=== PATIENT | female | born 1990 | race Caucasian/White ===

== ENCOUNTER 2017-08-14 00:02 | Emergency (ER) | payer OTHER, MEDICAID ==
[~2017-08-14] VITALS: Ht 160 cm; Wt 45.4 kg
[2017-08-14] MEDS ORDERED: HYDROXYZINE HCL25 M1 (00:14)
[2017-08-14] MEDS ORDERED: PAXIL10 MG (00:14)
[2017-08-14 01:07] VITALS: BP 104/59
== END 2017-08-14 01:10 | disposition home or self-care (01) ==
LOC: M.ERS 00:02
DX: J06.9 Acute upper respiratory infection, unspecified (principal); F41.9 Anxiety disorder, unspecified; F32.9 Major depressive disorder, single episode, unspecified

== ENCOUNTER 2017-08-15 22:18 | Emergency (ER) | payer MEDICAID ==
[~2017-08-15] VITALS: Ht 160 cm; Wt 45.4 kg
[~2017-08-15 22:18] MED LIST: HYDROXYZINE HCL25 M1; PAXIL10 MG
[2017-08-15 22:36] LABS: ABSOLUTE LYMPHOCYTES 1.6 thou/uL (0.8-5.3); ABSOLUTE MONOCYTES 0.4 thou/uL (0.0-1.2); BASOPHILS 0.3 %; EOSINOPHILS 0.5 %; HEMOGLOBIN 8.2 gm/dL (12.0-15.0); LYMPHOCYTES 26.7 %; MCH 20.1 pg (26.0-34.0); MCHC 30.4 g/dL (28.0-37.0); MCV 66.3 fL (80.0-100.0); MONOCYTES 5.9 %; MPV 7.5 fl. (7.2-11.1); NUCLEATED RBCS 0 /100WBC; PLATELET COUNT* 178 thou/uL (150-400); POLYS 66.6 %; RBC 4.07 mil/uL (4.20-5.00); RDW-CV 18.3 % (10.5-14.5)
[2017-08-15 22:42] LABS: CALCIUM 8.7 mg/dL (8.5-10.1); CREATININE 0.6 mg/dL (0.6-1.3); POTASSIUM 3.2 mmol/L (3.5-5.1)
[2017-08-15 22:46] LABS: ALBUMIN 3.5 g/dL (3.4-5.0); TOTAL BILIRUBIN 0.3 mg/dL (<0.1-1.0); TOTAL PROTEIN 7.3 g/dL (6.4-8.2)
[2017-08-15 22:57] LABS: PLATELET ESTIMATE ADEQUATE
[2017-08-15 22:58] LABS: ANISOCYTOSIS 1+; OVALOCYTES Occasional
[2017-08-15 22:59] LABS: HYPOCHROMASIA 2+
[2017-08-15 23:00] LABS: MICROCYTES 2+
[2017-08-15 23:01] VITALS: BP 111/77
--- NOTE | 2017-08-16 09:34 | EKG ---
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
== END 2017-08-15 23:01 | disposition home or self-care (01) ==
LOC: M.ERS 22:18
PROVIDERS: Family Medicine
DX: R51 Headache (principal); F41.9 Anxiety disorder, unspecified; F32.9 Major depressive disorder, single episode, unspecified

== ENCOUNTER 2017-08-19 21:09 | Emergency (ER) | payer MEDICAID ==
[~2017-08-19] VITALS: Ht 160 cm; Wt 45.4 kg
[2017-08-19 21:53] LABS: ABSOLUTE LYMPHOCYTES 1.9 thou/uL (0.8-5.3); ABSOLUTE MONOCYTES 0.2 thou/uL (0.0-1.2); BASOPHILS 0.6 %; EOSINOPHILS 0.5 %; HEMATOCRIT 27.8 % (37.0-47.0); HEMOGLOBIN 8.4 gm/dL (12.0-15.0); MCH 20.1 pg (26.0-34.0); MCHC 30.4 g/dL (28.0-37.0); MCV 66.3 fL (80.0-100.0); MONOCYTES 3.4 %; MPV 7.7 fl. (7.2-11.1); NUCLEATED RBCS 0 /100WBC; PLATELET COUNT* 191 thou/uL (150-400); POLYS 58.5 %; WBC 5.1 thou/uL (4.0-11.0)
[2017-08-19 22:09] LABS: ANION GAP 8 mmol/L (7-16); BUN 6 mg/dL (7-18); CALCIUM 8.9 mg/dL (8.5-10.1); CHLORIDE 105 mmol/L (98-107); CO2 28 mmol/L (21-32); CREATININE 0.7 mg/dL (0.6-1.3); GLUCOSE 83 mg/dL (70-99); POTASSIUM 3.4 mmol/L (3.5-5.1); SODIUM 141 mmol/L (136-145)
[2017-08-19 22:11] LABS: URINE BILIRUBIN NEGATIVE (Negative); URINE BLOOD NEGATIVE (Negative); URINE CLARITY CLEAR; URINE COLOR YELLOW; URINE GLUCOSE-RANDOM NEGATIVE (Negative); URINE KETONES NEGATIVE (Negative); URINE LEUKOCYTES-REFLEX NEGATIVE (Negative); URINE NITRITE-REFLEX NEGATIVE (Negative); URINE PROTEIN NEGATIVE (Negative); URINE SPECIFIC GRAVITY 1.025 (1.005-1.030); URINE UROBILINOGEN 0.2 E.U./dl (0.2-1.0)
[2017-08-19 22:15] LABS: ALBUMIN 3.8 g/dL (3.4-5.0); ALKALINE PHOSPHATASE 56 U/L (46-116); LIPASE 130 U/L (73-393); SGOT 36 U/L (15-37); SGPT 80 U/L (30-65); TOTAL BILIRUBIN 0.3 mg/dL (<0.1-1.0); TOTAL PROTEIN 7.9 g/dL (6.4-8.2); TROPONIN-I LEVEL <0.06 ng/mL (<0.06)
[2017-08-19 22:21] LABS: OVALOCYTES Occasional; PLATELET ESTIMATE ADEQUATE
[2017-08-19 22:22] LABS: ANISOCYTOSIS 1+; HYPOCHROMASIA 2+; MICROCYTES 2+
[2017-08-19 23:25] VITALS: BP 102/66
--- NOTE | 2017-08-20 14:23 | EKG ---
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: PAULINE : 1990 Requested By: Soy Petit Order Number: [id number] MD: Franco Sahu Measurements Intervals [place] Rate: 57 P: 53 [place]: 141 QRS: 31 QRSD: 105 T: 28 QT: 473 QTc: 461 Interpretive Statements Sinus rhythm Probable left atrial enlargement RSR' in V1 or V2, right VCD Nonspecific T abnormalities, anterior leads Compared to ECG 08/15/2017 22:34:58 RSR' in V1 or V2 now present T-wave abnormality now present Electronically Signed On 08-20-2017 14:23:36 CDT by Franco Sahu [email or web address] <ELECTRONICALLY SIGNED> By: Franco Sahu MD, [facility] 08/20/17 1423 01 01 Franco Sahu MD, [facility] /EPI
== END 2017-08-19 23:15 | disposition home or self-care (01) ==
LOC: M.ERS 21:09
PROVIDERS: Emergency Medicine Emergency Medical Services
DX: R51 Headache (principal); F41.9 Anxiety disorder, unspecified; F32.9 Major depressive disorder, single episode, unspecified

== ENCOUNTER 2017-09-20 14:41 | Emergency (ER) | payer MEDICAID ==
[~2017-09-20] VITALS: Ht 157.5 cm; Wt 45.4 kg
[2017-09-20] MEDS ORDERED: MEDROLDOSEPACK PO (15:17)
[2017-09-20] MEDS ORDERED: NAPROSYN500 MG PO (15:17)
[2017-09-20 15:49] VITALS: BP 126/62
== END 2017-09-20 15:49 | disposition home or self-care (01) ==
LOC: M.ERS 14:41
DX: M54.42 Lumbago with sciatica, left side (principal); F41.9 Anxiety disorder, unspecified; F32.9 Major depressive disorder, single episode, unspecified; Z98.890 Other specified postprocedural states

== ENCOUNTER 2017-09-29 03:25 | Emergency (ER) | payer MEDICAID ==
[~2017-09-29] VITALS: Ht 160 cm; Wt 45.4 kg
[~2017-09-29 03:25] MED LIST changes: +MEDROLDOSEPACK PO; +NAPROSYN500 MG PO
[2017-09-29 03:29] VITALS: BP 114/73
== END 2017-09-29 04:05 | disposition home or self-care (01) ==
LOC: M.ERS 03:25
DX: L53.9 Erythematous condition, unspecified (principal); T63.441A Toxic effect of venom of bees, accidental (unintentional), initial encounter; F32.9 Major depressive disorder, single episode, unspecified; F41.9 Anxiety disorder, unspecified; Z98.890 Other specified postprocedural states; Y92.89 Other specified places as the place of occurrence of the external cause

== ENCOUNTER 2017-10-09 17:38 | Emergency (ER) | payer MEDICAID ==
[~2017-10-09] VITALS: Ht 160 cm; Wt 45.4 kg
[2017-10-09] MEDS ORDERED: IBUPROFEN 600600 M1 PO (18:49)
[2017-10-09 18:56] VITALS: BP 111/72
== END 2017-10-09 18:57 | disposition home or self-care (01) ==
LOC: M.ERS 17:38
DX: M54.2 Cervicalgia (principal); M25.532 Pain in left wrist; M25.562 Pain in left knee; F31.9 Bipolar disorder, unspecified; V19.9XXA Pedal cyclist (driver) (passenger) injured in unspecified traffic accident, initial encounter; Y93.89 Activity, other specified; Y92.89 Other specified places as the place of occurrence of the external cause; Y99.8 Other external cause status

== ENCOUNTER 2017-10-11 22:54 | Emergency (ER) | payer MEDICAID ==
[~2017-10-11] VITALS: Ht 160 cm; Wt 45.4 kg
[~2017-10-11 22:54] MED LIST changes: +IBUPROFEN 600600 M1 PO
[2017-10-11 23:33] LABS: ABSOLUTE LYMPHOCYTES 1.7 thou/uL (0.8-5.3); ABSOLUTE MONOCYTES 0.2 thou/uL (0.0-1.2); ABSOLUTE NEUTROPHILS 2.7 thou/uL (1.6-8.1); BASOPHILS 0.5 %; EOSINOPHILS 0.9 %; HEMATOCRIT 28.6 % (37.0-47.0); HEMOGLOBIN 8.7 gm/dL (12.0-15.0); LYMPHOCYTES 35.6 %; MCHC 30.4 g/dL (28.0-37.0); MCV 65.7 fL (80.0-100.0); MONOCYTES 4.8 %; MPV 8.4 fl. (7.2-11.1); NUCLEATED RBCS 0 /100WBC; PLATELET COUNT* 203 thou/uL (150-400); POLYS 58.2 %; RBC 4.35 mil/uL (4.20-5.00); RDW-CV 18.5 % (10.5-14.5); WBC 4.7 thou/uL (4.0-11.0)
[2017-10-11 23:40] LABS: CALCIUM 8.9 mg/dL (8.5-10.1); CREATININE 0.6 mg/dL (0.6-1.3); POTASSIUM 3.6 mmol/L (3.5-5.1)
[2017-10-11 23:44] LABS: ALBUMIN 3.5 g/dL (3.4-5.0); TOTAL BILIRUBIN 0.3 mg/dL (<0.1-1.0); TOTAL PROTEIN 7.4 g/dL (6.4-8.2)
[2017-10-12 00:18] LABS: URINE BILIRUBIN NEGATIVE (Negative); URINE BLOOD 3+ (Negative); URINE CLARITY CLEAR; URINE COLOR DARK YELLOW; URINE GLUCOSE-RANDOM NEGATIVE (Negative); URINE KETONES NEGATIVE (Negative); URINE LEUKOCYTES NEGATIVE (Negative); URINE NITRITE NEGATIVE (Negative); URINE PROTEIN TRACE (Negative); URINE SPECIFIC GRAVITY 1.015 (1.005-1.030); URINE UROBILINOGEN 0.2 E.U./dl (0.2-1.0)
[2017-10-12 00:24] LABS: BACTERIA 1-9 Few /HPF (None Seen); CASTS None Seen /LPF (None Seen); CRYSTALS None Seen /LPF (None Seen); MUCUS 0-3 Light strn/LPF (None Seen); SQUAMOUS 0-3 Few /LPF (0-3); URINE RBC >20 Many /HPF (0-2); URINE WBC None Seen /HPF (0-5)
[2017-10-12] MEDS ORDERED: ZOFRAN ODT4 MG PO (00:27)
[2017-10-12] MEDS ORDERED: IRON325 PO (00:27)
[2017-10-12 00:36] VITALS: BP 101/75
[2017-10-12 05:36] LABS: HYPOCHROMASIA 2+; MICROCYTES 2+; PLATELET ESTIMATE ADEQUATE; POIKILOCYTOSIS 1+
[2017-10-12 05:37] LABS: ANISOCYTOSIS 2+
== END 2017-10-12 00:38 | disposition home or self-care (01) ==
LOC: M.ERS 22:54
PROVIDERS: Nurse Practitioner Family
DX: F07.81 Postconcussional syndrome (principal); D64.9 Anemia, unspecified; F31.9 Bipolar disorder, unspecified; F41.9 Anxiety disorder, unspecified

== ENCOUNTER 2017-12-05 23:17 | Emergency (ER) | payer MEDICAID ==
[~2017-12-05] VITALS: Ht 160 cm; Wt 45.4 kg
[~2017-12-05 23:17] MED LIST changes: +IRON325 PO; +ZOFRAN ODT4 MG PO
[2017-12-06 00:30] VITALS: BP 96/64
== END 2017-12-06 00:32 | disposition home or self-care (01) ==
LOC: M.ERS 23:17
DX: R10.2 Pelvic and perineal pain (principal); F31.9 Bipolar disorder, unspecified

== ENCOUNTER 2017-12-31 20:37 | Emergency (ER) | payer MEDICAID ==
[~2017-12-31] VITALS: Ht 160 cm; Wt 45.4 kg
[2017-12-31] MEDS ORDERED: ROBAXIN 750 MG750 M1 PO (23:08)
[2017-12-31] MEDS ORDERED: ACETAMINOPHEN-1 EAC1 PO (23:08)
[2017-12-31] MEDS ORDERED: IBU600 MG PO (23:08)
[2017-12-31 23:22] VITALS: BP 106/74
== END 2017-12-31 23:22 | disposition home or self-care (01) ==
LOC: M.ERS 20:37
DX: M54.2 Cervicalgia (principal); R51 Headache; F31.9 Bipolar disorder, unspecified; F41.9 Anxiety disorder, unspecified

== ENCOUNTER 2018-03-13 05:17 | Emergency (ER) | payer MEDICAID ==
[~2018-03-13] VITALS: Ht 160 cm; Wt 45.4 kg
[~2018-03-13 05:17] MED LIST changes: +ACETAMINOPHEN-1 EAC1 PO; +IBU600 MG PO; +ROBAXIN 750 MG750 M1 PO
[2018-03-13 05:57] LABS: ABSOLUTE EOSINOPHILS 0.1 thou/uL (0.0-0.7); ABSOLUTE LYMPHOCYTES 2.2 thou/uL (0.8-5.3); ABSOLUTE MONOCYTES 0.3 thou/uL (0.0-1.2); BASOPHILS 0.8 %; EOSINOPHILS 1.4 %; HEMATOCRIT 30.7 % (37.0-47.0); HEMOGLOBIN 9.3 gm/dL (12.0-15.0); LYMPHOCYTES 49.3 %; MCH 20.2 pg (26.0-34.0); MCHC 30.3 g/dL (28.0-37.0); MCV 66.5 fL (80.0-100.0); MONOCYTES 5.5 %; MPV 8.8 fl. (7.2-11.1); NUCLEATED RBCS 0 /100WBC; PLATELET COUNT* 167 thou/uL (150-400); RBC 4.61 mil/uL (4.20-5.00); RDW-CV 19.1 % (10.5-14.5); WBC 4.6 thou/uL (4.0-11.0)
[2018-03-13 06:05] LABS: CALCIUM 9.6 mg/dL (8.5-10.1); CREATININE 0.8 mg/dL (0.6-1.3); POTASSIUM 3.7 mmol/L (3.5-5.1)
[2018-03-13 06:10] LABS: ALBUMIN 3.7 g/dL (3.4-5.0); TOTAL BILIRUBIN 0.3 mg/dL (<0.1-1.0); TOTAL PROTEIN 7.6 g/dL (6.4-8.2)
[2018-03-13] MEDS ORDERED: FLEXERIL PO (06:11)
[2018-03-13] MEDS ORDERED: TORADOL 10 MG T10 MG PO (06:11)
[2018-03-13 06:19] VITALS: BP 102/69
[2018-03-13 06:28] LABS: HYPOCHROMASIA 2+
[2018-03-13 06:29] LABS: ANISOCYTOSIS 1+; MICROCYTES 1+
== END 2018-03-13 06:19 | disposition home or self-care (01) ==
LOC: M.ERS 05:17
PROVIDERS: Emergency Medicine
DX: R51 Headache (principal); F31.9 Bipolar disorder, unspecified; F41.9 Anxiety disorder, unspecified; Z98.890 Other specified postprocedural states

== ENCOUNTER 2018-04-12 20:50 | Emergency (ER) | payer MEDICAID ==
[~2018-04-12] VITALS: Ht 160 cm; Wt 52.2 kg
[~2018-04-12 20:50] MED LIST changes: +FLEXERIL PO; +TORADOL 10 MG T10 MG PO
[2018-04-12 21:30] LABS: ABSOLUTE LYMPHOCYTES 1.3 thou/uL (0.8-5.3); ABSOLUTE MONOCYTES 0.2 thou/uL (0.0-1.2); ABSOLUTE NEUTROPHILS 2.3 thou/uL (1.6-8.1); BASOPHILS 0.7 %; EOSINOPHILS 1.1 %; HEMATOCRIT 30.2 % (37.0-47.0); HEMOGLOBIN 9.2 gm/dL (12.0-15.0); LYMPHOCYTES 33.5 %; MCH 20.2 pg (26.0-34.0); MCHC 30.6 g/dL (28.0-37.0); MCV 66.1 fL (80.0-100.0); MONOCYTES 5.5 %; MPV 8.5 fl. (7.2-11.1); NUCLEATED RBCS 0 /100WBC; PLATELET COUNT* 162 thou/uL (150-400); POLYS 59.2 %; RBC 4.56 mil/uL (4.20-5.00); RDW-CV 18.2 % (10.5-14.5); WBC 3.8 thou/uL (4.0-11.0)
[2018-04-12 21:40] LABS: ANION GAP 8 mmol/L (7-16); BUN 14 mg/dL (7-18); CALCIUM 9.5 mg/dL (8.5-10.1); CHLORIDE 102 mmol/L (98-107); CO2 27 mmol/L (21-32); CREATININE 0.8 mg/dL (0.6-1.3); GLUCOSE 80 mg/dL (70-99); POTASSIUM 3.3 mmol/L (3.5-5.1); SODIUM 137 mmol/L (136-145)
[2018-04-12 21:45] LABS: ALBUMIN 3.5 g/dL (3.4-5.0); ALKALINE PHOSPHATASE 51 U/L (46-116); LIPASE 106 U/L (73-393); SGOT 16 U/L (15-37); SGPT 17 U/L (30-65); TOTAL BILIRUBIN 0.3 mg/dL (<0.1-1.0); TOTAL PROTEIN 7.3 g/dL (6.4-8.2); TROPONIN-I LEVEL <0.06 ng/mL (<0.06)
[2018-04-12] MEDS ORDERED: ZANAFLEX4 MG PO (22:28)
[2018-04-12] MEDS ORDERED: ONDANSETRON HCL4 M2 PO (22:28)
[2018-04-12 22:48] LABS: ANISOCYTOSIS 2+
[2018-04-12 22:49] LABS: HYPOCHROMASIA 2+; MICROCYTES 2+; OVALOCYTES 1+; POIKILOCYTOSIS 2+; SCHISTOCYTES Occasional; TARGET CELLS Occasional; TEARDROPS Occasional
[2018-04-12 23:07] LABS: URINE BILIRUBIN NEGATIVE (Negative); URINE BLOOD TRACE (Negative); URINE CLARITY CLEAR; URINE COLOR YELLOW; URINE GLUCOSE-RANDOM NEGATIVE (Negative); URINE KETONES NEGATIVE (Negative); URINE LEUKOCYTES-REFLEX NEGATIVE (Negative); URINE NITRITE-REFLEX NEGATIVE (Negative); URINE PROTEIN NEGATIVE (Negative); URINE SPECIFIC GRAVITY >= 1.030 (1.005-1.030)
[2018-04-12 23:14] LABS: AMP/METHAMP Negative (Negative); BARBITURATES Negative (Negative); BENZODIAZEPINES Negative (Negative); COCAINE Negative (Negative); METHADONE Negative (Negative); OPIATES Negative (Negative); PCP Negative (Negative); THC Negative (Negative)
[2018-04-12 23:28] LABS: INFLUENZA A ANTIGEN None Detected (None Detect); INFLUENZA B ANTIGEN None Detected (None Detect)
[2018-04-12 23:47] VITALS: BP 102/78
--- NOTE | 2018-04-14 11:12 | EKG ---
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 : 1990 Requested By: Sweta Salazar Order Number: [id number] MD: Franco Sahu Measurements Intervals [place] Rate: 74 P: 70 [place]: 199 QRS: 27 QRSD: 98 T: 36 QT: 410 QTc: 455 Interpretive Statements Sinus rhythm Borderline ST elevation, anterolateral leads; consider ischemia Compared to ECG 08/19/2017 22:02:31 ST (T wave) deviation now present Electronically Signed On 04-14-2018 11:11:47 PROFESSOR OF JOURNALISM by Franco Sahu [email or web address] <ELECTRONICALLY SIGNED> By: Franco Sahu MD, [facility] 04/14/18 1111 24 24 Franco Sahu MD, [facility] /EPI
== END 2018-04-12 23:48 | disposition home or self-care (01) ==
LOC: M.ERS 20:50
PROVIDERS: Nurse Practitioner Family
DX: M41.84 Other forms of scoliosis, thoracic region (principal); D64.9 Anemia, unspecified; B34.9 Viral infection, unspecified; F31.9 Bipolar disorder, unspecified; F41.9 Anxiety disorder, unspecified; Z98.890 Other specified postprocedural states

== ENCOUNTER 2018-04-16 18:59 | Emergency (ER) | payer MEDICAID ==
[~2018-04-16] VITALS: Ht 160 cm; Wt 51.3 kg
[~2018-04-16 18:59] MED LIST changes: +ONDANSETRON HCL4 M2 PO; +ZANAFLEX4 MG PO
[2018-04-16 19:45] VITALS: BP 118/84
== END 2018-04-16 19:48 | disposition home or self-care (01) ==
LOC: M.ERS 18:59
DX: Z71.1 Person with feared health complaint in whom no diagnosis is made (principal); F41.9 Anxiety disorder, unspecified; F31.9 Bipolar disorder, unspecified; M41.9 Scoliosis, unspecified; Z98.890 Other specified postprocedural states

== ENCOUNTER 2018-05-20 10:09 | Emergency (ER) | payer MEDICAID ==
[~2018-05-20] VITALS: Ht 160 cm; Wt 51.3 kg
[2018-05-20 10:46] LABS: HEMATOCRIT 43.5 % (37.0-47.0); HEMOGLOBIN 13.7 gm/dL (12.0-15.0); MCH 23.9 pg (26.0-34.0); MCHC 31.5 g/dL (28.0-37.0); MCV 75.9 fL (80.0-100.0); MPV 8.9 fl. (7.2-11.1); NUCLEATED RBCS 0 /100WBC; PLATELET COUNT* 198 thou/uL (150-400); RBC 5.73 mil/uL (4.20-5.00); RDW-CV 26.9 % (10.5-14.5); WBC 6.6 thou/uL (4.0-11.0)
[2018-05-20 11:01] LABS: ANION GAP 8 mmol/L (7-16); BUN 10 mg/dL (7-18); CALCIUM 9.8 mg/dL (8.5-10.1); CHLORIDE 102 mmol/L (98-107); CO2 26 mmol/L (21-32); CREATININE 0.8 mg/dL (0.6-1.3); GLUCOSE 79 mg/dL (70-99); POTASSIUM 3.6 mmol/L (3.5-5.1); SODIUM 136 mmol/L (136-145)
[2018-05-20 11:05] LABS: ABSOLUTE LYMPHOCYTES 0.2 thou/uL (0.8-5.3); ABSOLUTE NEUTROPHILS 6.4 thou/uL (1.6-8.1); ALBUMIN 4.4 g/dL (3.4-5.0); ALKALINE PHOSPHATASE 63 U/L (46-116); ANISOCYTOSIS 2+; HYPOCHROMASIA 1+; LIPASE 141 U/L (73-393); PLATELET ESTIMATE ADEQUATE; SGOT 14 U/L (15-37); SGPT 19 U/L (30-65); TOTAL BILIRUBIN 0.4 mg/dL (<0.1-1.0); TROPONIN-I LEVEL <0.06 ng/mL (<0.06)
[2018-05-20 11:15] VITALS: BP 97/69
--- NOTE | 2018-05-20 16:15 | EKG ---
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1990 Requested By: Lauri Ramon Order Number: [id number] MD: Mukul Jonas Measurements Intervals [place] Rate: 83 P: 66 [place]: 165 QRS: 13 QRSD: 92 T: 15 QT: 349 QTc: 410 Interpretive Statements Sinus rhythm Compared to ECG 04/12/2018 21:25:27 ST (T wave) deviation no longer present Possible ischemia no longer present Electronically Signed On 05-20-2018 16:15:38 CANT HOOKER by Mukul Jonas [email or web address] <ELECTRONICALLY SIGNED> By: Mukul Jonas MD, [facility] 05/20/18 1615 1012 1012 Mukul Jonas MD, [facility] /EPI
== END 2018-05-20 11:19 | disposition home or self-care (01) ==
LOC: M.ERS 10:09
PROVIDERS: Family Medicine
DX: J06.9 Acute upper respiratory infection, unspecified (principal); R07.89 Other chest pain; F41.9 Anxiety disorder, unspecified; Z86.2 Personal history of diseases of the blood and blood-forming organs and certain disorders involving the immune mechanism

== ENCOUNTER 2018-09-18 20:51 | Emergency (ER) | payer MEDICAID ==
[~2018-09-18] VITALS: Ht 160 cm; Wt 51.9 kg
[2018-09-18 21:21] LABS: ABSOLUTE EOSINOPHILS 0.1 thou/uL (0.0-0.7); ABSOLUTE LYMPHOCYTES 2.4 thou/uL (0.8-5.3); ABSOLUTE MONOCYTES 0.2 thou/uL (0.0-1.2); ABSOLUTE NEUTROPHILS 1.8 thou/uL (1.6-8.1); BASOPHILS 0.8 %; EOSINOPHILS 2.4 %; HEMATOCRIT 35.2 % (37.0-47.0); HEMOGLOBIN 11.5 gm/dL (12.0-15.0); MCH 27.2 pg (26.0-34.0); MCHC 32.8 g/dL (28.0-37.0); MCV 82.8 fL (80.0-100.0); MPV 8.4 fl. (7.2-11.1); NUCLEATED RBCS 0 /100WBC; PLATELET COUNT* 126 thou/uL (150-400); POLYS 39.8 %; RBC 4.25 mil/uL (4.20-5.00); RDW-CV 13.5 % (10.5-14.5); WBC 4.6 thou/uL (4.0-11.0)
[2018-09-18 21:32] LABS: CALCIUM 8.6 mg/dL (8.5-10.1); POTASSIUM 3.4 mmol/L (3.5-5.1)
[2018-09-18 21:45] LABS: ALBUMIN 3.5 g/dL (3.4-5.0); TOTAL BILIRUBIN 0.3 mg/dL (<0.1-1.0)
[2018-09-18] MEDS ORDERED: CYCLOBENZAPRINE5 MG PO (22:01)
[2018-09-18 22:10] VITALS: BP 105/65
--- NOTE | 2018-09-19 11:35 | EKG ---
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: HYUN : 1990 Requested By: Raquel Parikh Order Number: [id number] MD: Sd Tapia Measurements Intervals [place] Rate: 60 P: 39 [place]: 194 QRS: 34 QRSD: 110 T: 31 QT: 451 QTc: 451 Interpretive Statements Sinus rhythm RSR' in V1 or V2, right VCD or RVH Compared to ECG 05/20/2018 10:12:34 Right ventricular hypertrophy now present RSR' in V1 or V2 now present Electronically Signed On 09-19-2018 11:35:33 CDT by Sd Tapia [email or web address] <ELECTRONICALLY SIGNED> By: Sd Tapia MD, [facility] 09/19/18 1135 17 17 dS Tapia MD, [facility] /EPI
== END 2018-09-18 22:10 | disposition home or self-care (01) ==
LOC: M.ERS 20:51
PROVIDERS: Nurse Practitioner Family
DX: R51 Headache (principal); M26.622 Arthralgia of left temporomandibular joint

== ENCOUNTER 2019-05-19 16:10 | Emergency (ER) | payer MEDICAID ==
[~2019-05-19] VITALS: Ht 160 cm; Wt 49.4 kg
[~2019-05-19 16:10] MED LIST changes: +CYCLOBENZAPRINE5 MG PO
[2019-05-19 17:32] LABS: INFLUENZA A ANTIGEN Negative (Negative); INFLUENZA B ANTIGEN Negative (Negative)
[2019-05-19 17:41] LABS: ABSOLUTE EOSINOPHILS 0.1 thou/uL (0.0-0.7); ABSOLUTE MONOCYTES 0.1 thou/uL (0.0-1.2); ABSOLUTE NEUTROPHILS 1.3 thou/uL (1.6-8.1); BASOPHILS 0.7 %; EOSINOPHILS 3.2 %; HEMATOCRIT 38.5 % (37.0-47.0); HEMOGLOBIN 12.8 gm/dL (12.0-15.0); LYMPHOCYTES 38.4 %; MCHC 33.3 g/dL (28.0-37.0); MCV 84.1 fL (80.0-100.0); MONOCYTES 5.9 %; NUCLEATED RBCS 0 /100WBC; PLATELET COUNT* 128 thou/uL (150-400); POLYS 51.8 %; RBC 4.58 mil/uL (4.20-5.00); RDW-CV 13.2 % (10.5-14.5); WBC 2.5 thou/uL (4.0-11.0)
[2019-05-19 17:45] LABS: URINE BILIRUBIN NEGATIVE (Negative); URINE BLOOD NEGATIVE (Negative); URINE CLARITY CLEAR; URINE COLOR YELLOW; URINE GLUCOSE-RANDOM NEGATIVE (Negative); URINE KETONES NEGATIVE (Negative); URINE LEUKOCYTES-REFLEX NEGATIVE (Negative); URINE NITRITE-REFLEX NEGATIVE (Negative); URINE PROTEIN NEGATIVE (Negative); URINE SPECIFIC GRAVITY 1.025 (1.005-1.030); URINE UROBILINOGEN >= 8.0 E.U./dl (0.2-1.0)
[2019-05-19 17:49] LABS: CALCIUM 7.9 mg/dL (8.5-10.1); CREATININE 0.6 mg/dL (0.6-1.3); POTASSIUM 3.8 mmol/L (3.5-5.1)
[2019-05-19 17:54] LABS: ALBUMIN 3.4 g/dL (3.4-5.0); TOTAL BILIRUBIN 0.3 mg/dL (<0.1-1.0); TOTAL PROTEIN 6.9 g/dL (6.4-8.2)
[2019-05-19 18:11] VITALS: BP 130/89
== END 2019-05-19 18:12 | disposition home or self-care (01) ==
LOC: M.ERS 16:10
PROVIDERS: Nurse Practitioner Family; Physician Assistant
DX: D69.6 Thrombocytopenia, unspecified (principal); R53.1 Weakness; M41.9 Scoliosis, unspecified; Z86.2 Personal history of diseases of the blood and blood-forming organs and certain disorders involving the immune mechanism